=== PATIENT | male | born 1955 | race Caucasian/White ===

== ENCOUNTER 2018-07-14 07:17 | Emergency (ER) | payer OTHER ==
[2018-07-14 07:42] VITALS: BP 143/61
[2018-07-14] MEDS ORDERED: Tetracaine 0.5% OPTH.SOL 4 ML* 1 DROP BTL BOTH EYES ONE (08:19)
[2018-07-14] MEDS ORDERED: Fluorescein Sodium TOPICAL* 1 MG TEST STRIP OPHTHALMIC ONE (08:19)
--- NOTE | 2018-07-14 08:26 | UC ---
General HPI - HPI Summary HPI Summary: pt c/o a FB sensation to his L eye x 2 days. he noted while driving home, after he had been cutting cast iron pipe. + tearing and redness plus eye feels sore but no visual loss, photophobia or contact use. does wear glasses. noted some crusting upon waking but none since clearing eye with a warm wash cloth. no uri, sore throat or headache. - History of Current Complaint Chief Complaint: UCEye Stated Complaint: LEFT EYE IRRITATION Time Seen by Provider: 07/14/18 08:16 Hx Obtained From: Patient Timing: Constant Pain Intensity: 0 Associated Signs & Symptoms: Negative: Fever, Headache - Allergy/Home Medications Allergies/Adverse Reactions: Allergies Allergy/AdvReac Type Severity Reaction Status Date / Time No Known Allergies Allergy Verified 07/14/18 07:37 Home Medications: Home Medications Aspirin [Aspirin Childrens 81 MG] 81 mg PO DAILY 07/14/18 [History Confirmed 03/24] PMH/Surg Hx/FS Hx/Imm Hx Endocrine History: Dyslipidemia Cardiovascular History: Cardiac Disease, Hypertension - Surgical History Surgical History: Yes Surgery Procedure, Year, and Place: CARDIAC STENT AFTER ME PLACED IN 2013. CATARACTS BILATERAL EYES - Family History Known Family History: Positive: Non-Contributory - Social History Occupation: Employed Full-time Alcohol Use: Occasionally Substance Use Type: None Smoking Status (MU): Never Smoked Tobacco - Immunization History Most Recent Influenza Vaccination: unk Most Recent Tetanus Shot: unk Most Recent Pneumonia Vaccination: n/a Vaccination Up to Date: Yes Review of Systems All Other Systems Reviewed And Are Negative: Yes Constitutional: Positive: Negative Skin: Positive: Negative Eyes: Positive: Eye Redness - L ENT: Positive: Negative Respiratory: Positive: Negative Cardiovascular: Positive: Negative Gastrointestinal: Positive: Negative Genitourinary: Positive: Negative Motor: Positive: Negative Neurovascular: Positive: Negative Musculoskeletal: Positive: Negative Neurological: Positive: Negative Psychological: Positive: Negative Physical Exam Triage Information Reviewed: Yes Appearance: Well-Appearing Vital Signs: Initial Vital Signs Temp 97.5 F 07/14/18 07:35 Pulse 54 07/14/18 07:35 Resp 16 07/14/18 07:35 BP 143/61 07/14/18 07:35 Pulse Ox 97 07/14/18 07:35 Vital Signs Reviewed: Yes Eyes: Positive: Other: - visual acuity with glasses=ou 20/20, od 20/25, os 20/ 25. no auricular adenopathy. no periorbital edema or erythema. Globes not firm to gentle palpation but L eye "sore". conjunctiva on L injected but R is clear. Lids everted and no FB found. AC's clear. PERRL, EOMI. L eye tetracaine and FB sensation resolved. Stain L eye and no abrasions, ulcerations, FB's or dendrites. Eyes has no exudates. ENT: Positive: Pharynx normal, TMs normal. Negative: Nasal congestion, Nasal drainage Neck: Positive: Supple, Nontender, No Lymphadenopathy Respiratory: Positive: Lungs clear, Normal breath sounds Cardiovascular: Positive: RRR, No Murmur Abdomen Description: Positive: Nontender, No Organomegaly, Soft Bowel Sounds: Positive: Present Musculoskeletal: Positive: ROM Intact Neurological: Positive: Alert Psychological: Positive: Age Appropriate Behavior Skin Exam: Normal Skin: Negative: Rashes Course/Dx - Course Course Of Treatment: I CALLED THE OFFICE OF DR HARRISON. DR TONY WHOM IS COVERING WAS KIND ENOUGH TO TAKE MY CALL. WE DISCUSSED PT'S HX AND PE. SHE WILL SEE PT IN OFFICE NOW. PT AGREES TO GO DIRECTLY THERE FROM HERE. - Differential Dx - Multi-Symptom Differential Diagnoses: Other - no abrasions, ulcerations, dendrites or FB's found. possible episcleritis or iritis. doubt glaucoma. - Diagnoses Provider Diagnosis: Pain, eye, left, Injected eye, left Discharge - Sign-Out/Discharge Documenting (check all that apply): Patient Departure All imaging exams completed and their final reports reviewed: No Studies - Discharge Plan Condition: Stable Disposition: HOME Patient Education Materials: Eye Pain (ED) Referrals: Andriy Harrison MD [Medical Doctor] - Additional Instructions: LEAVE HERE AND GO DIRECTLY TO THE OFFICE OF DR HARRISON. YOU WILL BE SEEN BY DR TONY. - Billing Disposition and Condition Condition: STABLE Disposition: Home - Attestation Statements Provider Attestation: I was available for consult. This patient was seen by the PILY. The patient was not presented to, seen by, or examined by me. EK
== END 2018-07-14 09:08 | disposition home or self-care (01) ==
LOC: UCCORT 07:17
DX: H57.12 Ocular pain, left eye (principal); I10 Essential (primary) hypertension
CPT/HCPCS: 99212; A9270-GY; G0463

== ENCOUNTER 2019-07-08 05:31 | Inpatient (IN) | payer OTHER ==
[~2019-07-08 05:31] MED LIST: Buffered Lidocaine 1% SYRIN* 1 ML/SYRINGE INTRADERM ONE
[2019-07-08] MEDS ORDERED: Famotidine IV* 10 MG/ML 2 ML (20 mg) IV ONE (06:00)
[2019-07-08] MEDS ORDERED: Dexamethasone IV* 4 MG/ML 1 ML (4 MG) IV SLOW PU ONE (06:00)
[2019-07-08] MEDS ORDERED: Acetaminophen IV 1GM/100ML * 1,000 MG/100 ML VIAL IVPB ONE (06:00)
[2019-07-08] MEDS ORDERED: Gabapentin CAP(*) 300 MG PO ONE (06:00)
[2019-07-08] MEDS ORDERED: Lactated Ringers 1000 ML Bag* 1,000 ML IV SCH ×2 (06:00→11:00)
[2019-07-08] MEDS ORDERED: celeCOXIB CAP* 200 MG PO ONE (06:00)
[2019-07-08] MEDS ORDERED: Dexamethasone IV* 4 MG/ML 1 ML (4 MG) ONE (06:38)
[2019-07-08] MEDS ORDERED: Acetaminophen IV 1GM/100ML * 100 ML ONE (06:39)
[2019-07-08] MEDS ORDERED: ceFAZolin 1 GM ADVAN(*) 1 GM ADDV.VIAL IVPB ONE (06:39)
[2019-07-08] MEDS ORDERED: ceFAZolin 2 GM in NS PREMIX(*) 2 GM/100 ML BAG IVPB ONE (06:39)
[2019-07-08] MEDS ORDERED: Famotidine IV* 10 MG/ML 2 ML (20 mg) ONE (06:39)
[2019-07-08] MEDS ORDERED: celeCOXIB CAP* 200 MG ONE (06:39)
[2019-07-08] MEDS ORDERED: Buffered Lidocaine 1% SYRIN* 1 ML/SYRINGE INTRADERM ONE ×2 (06:39→07:02)
[2019-07-08] MEDS ORDERED: Gabapentin CAP(*) 300 MG ONE (06:39)
[2019-07-08] MEDS ORDERED: Bupivacaine 0.5% SDV PF* 30ML VIAL ONE (07:20)
[2019-07-08] MEDS ORDERED: Midazolam* 1 MG/ML 5 ML VIAL (5 MG) ONE ×2 (07:21→08:17)
[2019-07-08] MEDS ORDERED: Propofol* 10 MG/ML 20 ML BTL ONE (07:21)
[2019-07-08] MEDS ORDERED: KETAMINE HCL* 50 MG/ML 10 ML VIAL ONE (07:21)
[2019-07-08] MEDS ORDERED: Ondansetron INJ* 2 MG/ML VIAL ONE (07:21)
[2019-07-08] MEDS ORDERED: ROPIVACAINE 5 MG/ML 30 ML BTL (0.5%) ONE (07:27)
[2019-07-08] MEDS ORDERED: Lidocaine 1% w EPI 1:200,000* SDV 30 ML VIAL ONE (07:34)
[2019-07-08] MEDS ORDERED: Bupivacaine 0.5%* 50 ML MDV VIAL ONE (07:34)
[2019-07-08] MEDS ORDERED: Bupivacaine 0.25% W/EPI* 10 ML SDV ONE (08:45)
[2019-07-08] MEDS ORDERED: DiMENhydriNATE IV* 50 MG/ML VIAL IV PUSH PRN (08:59)
[2019-07-08] MEDS ORDERED: fentaNYL* 50 MCG/ML 2 ML VIAL (100 MCG VIAL) IV PRN (08:59)
[2019-07-08] MEDS ORDERED: Ondansetron INJ* 2 MG/ML VIAL IV PRN ×2 (08:59→10:23)
[2019-07-08] MEDS ORDERED: HYDROmorphone INJ1* 1 MG/ML SYRINGE IV PRN (08:59)
[2019-07-08] MEDS ORDERED: Scopolamine 1.5 mg* PATCH TRANSDERM PRN (08:59)
[2019-07-08] MEDS ORDERED: Naloxone* 0.4 MG/ML 1 ML VIAL IV PRN (08:59)
[2019-07-08] MEDS ORDERED: diPHENhydraMINE PO* 25 MG PO PRN (10:23)
[2019-07-08] MEDS ORDERED: oxyCODONE/Acetamin 5/325 MG* TAB PO PRN (10:23)
[2019-07-08] MEDS ORDERED: diPHENhydraMINE IV* 50 MG/ML 1 ml VIAL (BENADRYL) IV PRN (10:23)
[2019-07-08] MEDS ORDERED: Magnesium Hydroxide LIQ* 30 ML UDC PO PRN (10:23)
[2019-07-08] MEDS ORDERED: Acetaminophen TAB* 325 MG PO PRN (10:23)
[2019-07-08] MEDS ORDERED: Ondansetron ODT TAB* 4 MG PO PRN (10:23)
[2019-07-08] MEDS ORDERED: Morphine INJ* 2 MG/ML 1 ML SYRINGE (TWO MG - NEW SYRINGE VERSION) IV PRN (10:23)
[2019-07-08] MEDS: Cyclobenzaprine TAB* 10 MG PO PRN ×2 (12:03→20:52)
[2019-07-08] MEDS: oxyCODONE TAB* 5 MG TAB PO PRN ×3 (12:04→20:51)
--- NOTE | 2019-07-08 12:18 | OP ---
DATE OF OPERATION: 07/08/19 - ROOM #348 DATE OF : 53 SURGEON: Johny Beverly MD. ASSISTANTS: Pieter Jean RPA and Chinyere Kinney RPA. ANESTHESIA: Regional/spinal/sedation. PRE-OP DIAGNOSIS: Osteoarthritis, left knee. POST-OP DIAGNOSIS: Osteoarthritis, left knee. OPERATIVE PROCEDURE: Left total knee arthroplasty. ESTIMATED BLOOD LOSS: 50 cc. COMPLICATIONS: None. HARDWARE: Trabecular metal, #8 femur and F tibia, 11-mm polyethylene spacer, 35 -mm cemented all-polyethylene patellar button. INDICATIONS: Mr. Stanley is a 63-year-old male who was having troubles with osteoarthritis of both of his knees for some time. He had been treated conservatively and initially had done better, but has been having more and more limitations because of the knees. I discussed with him that a total knee arthroplasty should work well to decrease his pain and improve his function. Risks of surgery such as infection, scar formation, stiffness, DVT, pulmonary embolism, hardware failure, and continued pain were some of the risks discussed. He had been declared medically optimized and wished to proceed. DESCRIPTION OF PROCEDURE: The patient had a femoral nerve block placed in the holding area and was brought back to the OR. Spinal anesthesia was introduced. Camacho catheter was placed. A tourniquet was placed over the proximal left thigh and was used during the case and total tourniquet time would be 70 minutes. Left knee was prepped and then draped. Esmarch was used to exsanguinate the leg and the tourniquet was raised. Midline incision was made beginning just medial to the tibial tubercle and carried 2 fingerbreadths above the superior pole of the patella. Incision was carried down through the skin and subcutaneous fat. Small bleeders encountered were ligated using electro- cautery. Extensor mechanism was exposed and a sharp parapatellar arthrotomy was made. Gush of clear yellowish joint fluid was encountered. Soft tissues were sharply elevated from the medial side of the tibia and the fat pad was sharpy excised. Spurs were rongeured down from the medial side of the tibia, medial and lateral femoral condyles and lateral border of the patella. Patella measured 24 mm in thickness and a nice 10 mm cut was taken. Patella was then easily subluxated laterally and the knee was flexed up. Nice exposure of the distal femur was obtained. Step drill was used to open the femoral canal and intramedullary guide was placed. Outrigger was adjusted until it was parallel with the posterior condyles and epicondyles and then pinned into the place. Distal femoral cutting was then pinned into the place and intramedullary guide was removed. Distal femoral cut was taken and it appeared a nice cut was obtained. Femur sized nicely for an 8 and this corresponded exactly to the preoperative templating. Using the symone wing, it appeared I would not notch the anterior surface of the femur and anterior and posterior femoral cuts followed by the chamfer cuts were taken. Attention was turned to the tibia. Step drill was used to open tibial canal and intramedullary guide was placed. Outrigger was assembled and adjusted until it appeared it would take 2 mm from the worn medial side. Cutting guide was pinned into place and proximal tibial cut was taken. It appeared a nice cut was obtained. 10 spacer block was used and it could be seen that the tibial cut was perfect as the drop theodora came right along the anterior spine of the tibia. However, he was little snug on the medial side and loose on the lateral side with stressing the knee. Extra millimeter was then shaved from the medial side of the femur and this was flattened across the distal cut. Using a 12 block, he was a little snug but no longer had the wobble. A cutting block was replaced and chamfer cuts were re- cut. With the spacer block in, he appeared to have excellent stability and alignment. The tibia was sized and the F sat nicely. Holes were drilled and attention was returned to the femur. Notch cut was finished using notch cut finishing guide and stud holes were also drilled. Trial polyethylene was placed and with the 11, I like how it came out in full extension with excellent stability and flexion. Patellar tracking was perfect even without the patellar button. Patella was sized and 35 sat nicely. Central peg hole was drilled for the non-cemented but when the parts were called for, the metal backed patella was for a revision and not the Persona trabecular metal. Therefore, cement was then prepared and a 35 patella was cemented into place. Femur and tibia were both impacted into place. Once the cement had hardened, he was again trialed with the 11 and had the same wonderful motion and stability. The knee was again copiously pulse lavaged. A 10 cc of 0.25% Marcaine with epinephrine was injected behind the medial femoral condyle and then 10 cc of 0.25% Marcaine with epinephrine was injected behind the lateral condyle and the final 10 cc was injected into the lateral gutter. The knee was again copiously pulse lavaged. 11 polyethylene was then snapped into the place in the same wonderful motion and stability. Parapatellar arthrotomy was then repaired using interrupted #1 Vicryl sutures. Tourniquet was let down. No significant bleeding was encountered. The knee was again copiously pulse lavaged and all stitches held with flexion and extension of the knee. Subcutaneous tissues were reapproximated with 2-0 Vicryl and skin was closed using angel. Sterile dressing was applied. The patient was then awaken, stable on transfer to the recovery room. [id number]/[facility] #: [id number] NAZ
--- NOTE | 2019-07-08 13:03 | PN ---
Progress Note - Progress Note Date of Service: 07/08/19 Note: Pt seen POD 0, he feels well without complaints. Knee is sore, tolerable. Denies CP, SOB, dizziness, nausea. DF/PF intact, DP2+, sensation intact to light touch distally. Restart ASA 81 mg qd tomorrow morning
[2019-07-08] MEDS ORDERED: Influenza VAC *QUAD* 2019-20* 0.5 ML SYRINGE IM ONE (14:00)
[2019-07-08] MEDS: oxyCODONE/Acetamin 5/325 MG* TAB PO PRN ×2 (14:09→18:19)
[2019-07-08] MEDS: ceFAZolin 1 GM ADVAN(*) 1 GM in NS 0.9% 50 ML* 50 ML IVPB SCH (16:19)
[2019-07-08] MEDS ORDERED: Warfarin TAB(*) 10 MG PO ONE (17:00)
[2019-07-08] MEDS: Magnesium Hydroxide LIQ* 30 ML UDC PO SCH (20:51)
[2019-07-08] MEDS: Atorvastatin* 80 MG TAB PO SCH (20:51)
[2019-07-08] MEDS: Docusate CAP* 100 MG PO SCH (20:52)
[2019-07-09] MEDS: ceFAZolin 1 GM ADVAN(*) 1 GM in NS 0.9% 50 ML* 50 ML IVPB SCH ×2 (00:03→07:41)
[2019-07-09] MEDS: oxyCODONE/Acetamin 5/325 MG* TAB PO PRN ×5 (03:35→22:48)
[2019-07-09 07:26] LABS: Hematocrit 39 % (42-52); Hemoglobin 12.6 g/dL (14.0-18.0); Mean Platelet Volume 9.7 fL (7.4-10.4); Platelet Count 214 10^3/uL (150-450)
[2019-07-09 07:39] LABS: INR 1.37 (0.82-1.09)
[2019-07-09 07:41] LABS: BUN/Creatinine Ratio 13.5 (8-20); Calcium 8.5 mg/dL (8.6-10.3); EGFR Non-African American 71.9 (>60); Potassium 4.2 mmol/L (3.5-5.0)
[2019-07-09] MEDS: Magnesium Hydroxide LIQ* 30 ML UDC PO SCH ×2 (07:41→19:36)
[2019-07-09] MEDS: Docusate CAP* 100 MG PO SCH ×2 (07:41→19:36)
[2019-07-09] MEDS: Vitamin THERAPEUTIC TAB PO SCH (07:42)
[2019-07-09] MEDS: Furosemide TAB* 20 MG PO SCH (07:43)
[2019-07-09] MEDS: Aspirin 81 mg CHEW TAB* 81 MG TAB.CHEW PO SCH (07:43)
[2019-07-09] MEDS: Heparin VIAL(*) 5000 UNITS/ML VIAL (FIVE THOUSAND) SUBCUT SCH ×3 (07:44→21:58)
--- NOTE | 2019-07-09 08:42 | PN ---
Progress Note - Progress Note Date of Service: 07/09/19 SOAP: Subjective: []Pt seen at bedside POD 1 sp LTK. He has not worked with PT yet today but did transfer bed to chair last night. Knee remains sore with a tolerable level of pain, reduced by medications given. Denies CP, SOB, dizziness or nausea. Objective: []Gen: NAD, appears well LLE: Left knee dressing CDI, thigh is soft, DF/PF intact, DP2+, sensation intact to light touch distally Calves supple and nontender without erythema, edema or palpable cords Assessment: []POD 1 sp left total knee replacement Plan: []WBAT PT/OT heparin bridge to coumadin. coumadin 6 mg today Anticipate DC to home tomorrow Vital Signs Temp 97.9 F 07/09/19 07:47 Pulse 73 07/09/19 07:47 Resp 18 07/09/19 07:55 BP 150/72 07/09/19 07:47 Pulse Ox 94 07/09/19 07:52 Intake & Output 07/08/19 07/09/19 07/09/19 18:59 06:59 18:59 Intake Total 1740 739 Output Total 350 1350 Balance 1390 -611 Intake: IV Fluids 1500 689 LR 689 lr 1500 IVPB 50 cefazolin 50 Oral 240 Output: Camacho 350 1350 Laboratory Last Values Hgb 12.6 g/dL (14.0-18.0) L 07/09/19 06:35 Hct 39 % (42-52) L 07/09/19 06:35 Plt Count 214 10^3/uL (150-450) 07/09/19 06:35 MPV 9.7 fL (7.4-10.4) 07/09/19 06:35 INR (Anticoag Therapy) 1.37 (0.82-1.09) H 07/09/19 06:35 Sodium 134 mmol/L (135-145) L 07/09/19 06:35 Potassium 4.2 mmol/L (3.5-5.0) 07/09/19 06:35 Chloride 97 mmol/L (101-111) L 07/09/19 06:35 Carbon Dioxide 33 mmol/L (22-32) H 07/09/19 06:35 Anion Gap 4 mmol/L (2-11) 07/09/19 06:35 BUN 14 mg/dL (6-24) 07/09/19 06:35 Creatinine 1.04 mg/dL (0.67-1.17) 07/09/19 06:35 Est GFR ( Amer) 87.0 (>60) 07/09/19 06:35 Est GFR (Non-Af Amer) 71.9 (>60) 07/09/19 06:35 BUN/Creatinine Ratio 13.5 (8-20) 07/09/19 06:35 Glucose 106 mg/dL (70-100) H 07/09/19 06:35 Calcium 8.5 mg/dL (8.6-10.3) L 07/09/19 06:35
[2019-07-09] MEDS ORDERED: Influenza VAC *QUAD* 2019-20* 0.5 ML SYRINGE IM ONE (09:00)
[2019-07-09] MEDS: oxyCODONE TAB* 5 MG TAB PO PRN ×3 (10:36→19:36)
--- OUTSIDE RECORDS SUMMARY | 2019-07-09 16:13 | XMS REPORT | Continuity of Care Document ---
:1955 External Reference #:[id number] Author Name Johny Beverly M.D. 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 Onset: 09/30/2015 Calcium deposits in tendon ANCA Herbert Onset: 12/14/2016 Varicose veins of lower extremity Gideon Moser M.D. Onset: 03/15/2017 Atherosclerosis of arteries of the Gideon Moser M.D. Onset: 03/15/2017 extremities Thoracic and lumbosacral neuritis Gideon Moser M.D. Onset: 03/15/2017 Social History Type Date Description Comments Sex Unknown Tobacco Use Start: Unknown Never Smoked Cigarettes Smoking Status Reviewed: 06/26/19 Never Smoked Cigarettes ETOH Use Occasionally consumes alcohol Tobacco Use Start: Unknown Patient has never smoked Recreational Drug Use Denies Drug Use Exercise Type/Frequency Does not exercise Allergies, Adverse Reactions, Alerts Description No Known Drug Allergies Medications Active Medications SIG Qnty Indications Ordering Provider Date Naproxen Take 1 Tablet By 60tabs Jolly Escobar MD 03/01/2019 500mg Tablets Mouth Every 12 Hours With Food as Needed For Pain. Maximum Daily Dose Is 2 Rosuvastatin Calcium take 1 by mouth 30tabs Alvin Benito NP 10/26/2018 40mg each night Tablets Vitamin B-12 take 1 tablet by 60tabs Alvin Benito NP 01/27/2017 500mcg mouth twice a Tablet day [facility] apply before 2Pair R60.0 Alvin Benito NP 01/23/2017 Socks/Male/15-20MMHG/S getting [place] [facility] remove at bedtime Aspirin Ec Low Dose 1 by mouth every Unknown 81mg day Tablets DR Furosemide 1 by mouth every Unknown 20mg Tablets day History Medications Oxycodone HCL 1/2 to one 20caps M17.12 Johny Beverly, 05/08/2019 - 5mg tablets every 6 M.D. 05/09/2019 Capsules hours as needed for pain Meloxicam 1 -2 tablet by 30tabs M51.16 Alvin Benito NP 01/18/2019 - 7.5mg mouth once daily 06/12/2019 Tablets as needed Medications Administered in Office Medication SIG Qnty Indications Ordering Provider Date Triamcinolone (Kenalog) Jolly Escobar MD 03/05/2019 Injection Depomedrol 40MG ANCA Herbert 11/22/2017 Injection Depomedrol 40MG Johny Beverly M.D. 07/19/2017 Injection Depomedrol 40MG Johny Beverly M.D. 03/15/2017 Injection Depomedrol 40MG ANCA Herbert 12/14/2016 Injection Immunizations CPT Code Status Date Vaccine Reaction Lot # [id number] Given 04/12/2017 Zoster (Zostavax) [id number] Given 04/12/2017 Influenza Virus Vaccine, [id number] Quadrivalent, Split, Preservative Free [id number] Given 03/15/2017 Tdap - no immediate 4bn7l Tetanus/Diptheria/Acellular reaction...jh Pertussis Vital Signs Date Vital Result Comment 06/26/2019 1:01pm Height 69 inches 5'9" Weight 351.00 lb Heart Rate 62 /min BP Systolic 126 mmHg BP Diastolic 68 mmHg Body Temperature 97.4 F BMI (Body Mass Index) 51.8 kg/m2 06/13/2019 8:42am Height 69 inches 5'9" Weight 351.00 lb Heart Rate 60 /min BP Systolic 119 mmHg BP Diastolic 71 mmHg Body Temperature 97.2 F O2 % BldC Oximetry 90 % BMI (Body Mass Index) 51.8 kg/m2 Results Test Acquired Date Facility Test Result H/L Range Note CBC Auto 06/14/2019 [facility] White Blood 7.9 10^3/uL Normal 3.5-10.[address] [place] [address] [phone] Red Blood Count 5.27 10^6/uL Normal 4.18-5.48 Hemoglobin 13.7 g/dL Low 14.0-18.0 Hematocrit 43 % Normal 42-52 Mean Corpuscular Volume 81 fL Normal 80-94 Mean Corpuscular Hemoglobin 26 pg Low 27-31 Mean Corpuscular HGB Conc 32 g/dL Normal 31-36 Red Cell Distribution Width 16 % High 10-15 Platelet Count 214 10^3/uL Normal 150-450 Mean Platelet Volume 10.1 fL Normal 7.4-10.4 Abs Neutrophils 5.5 10^3/uL Normal 1.5-7.7 Abs Lymphocytes 1.5 10^3/uL Normal 1.0-4.8 Abs Monocytes 0.6 10^3/uL Normal 0-0.8 Abs Eosinophils 0.3 10^3/uL Normal 0-0.6 Abs Basophils 0.0 10^3/uL Normal 0-0.2 Abs Nucleated RBC 0.0 10^3/uL Granulocyte % 69.3 % Lymphocyte % 19.5 % Monocyte % 7.6 % Eosinophil % 3.4 % Basophil % 0.2 % Nucleated Red Blood Cells % 0.0 Basic Metabolic 06/14/2019 [facility] Sodium 142 mmol/L Normal 135-[address] [place] [address] [phone] Potassium 4.8 mmol/L Normal 3.5-5.0 Chloride 107 mmol/L Normal 101-111 Co2 Carbon Dioxide 30 mmol/L Normal 22-32 Anion Gap 5 mmol/L Normal 2-11 Glucose 96 mg/dL Normal 70-100 Blood Urea Nitrogen 19 mg/dL Normal 6-24 Creatinine 0.81 mg/dL Normal 0.67-1.17 BUN/Creatinine Ratio 23.5 High 8-20 Calcium 9.0 mg/dL Normal 8.6-10.3 Egfr Non- 95.9 >60 Egfr 116.1 >60 1 Urine Culture And 06/14/2019 [facility] Urine Culture SEE RESULT [address] [place] [address] [phone] Laboratory test 06/14/2019 [facility] Partial Thrombo 35.6 Normal 26. [address] Time PTT seconds 0-3 [place] [address] 8.0 [phone] Inr/Protime 06/14/2019 [facility] Inr 1.03 Normal 0.[address] [place] [address] .09 [phone] Laboratory test 06/14/2019 [facility] Vitamin B12 598 pg/mL Normal [address] [place] [address] 4 [phone] Lipid Profile 05/01/2019 [facility] Triglycerides 80 mg/dL 6 (Trig/Chol/HDL) [address] [place] [address] [phone] Cholesterol 145 mg/dL 7 HDL Cholesterol 35.4 mg/dL 8 LDL Cholesterol 94 mg/dL 9 Laboratory test 05/01/2019 [facility] Glucose 91 mg/dL Normal 70-[address] [place] [address] [phone] Stool Occult BLD 02/22/2019 [facility] Occult Blood Neg x3 1-3 SPCS Diag - Stool cards Comp Metabolic 01/31/2019 [facility] Sodium 141 mmol/L Normal 135-[address] [place], [place] [address] [phone] Potassium 4.0 mmol/L Normal 3.5-5.0 Chloride 105 mmol/L Normal 101-111 Co2 Carbon Dioxide 30 mmol/L Normal 22-32 Anion Gap 6 mmol/L Normal 2-11 Glucose 112 mg/dL High 70-100 Blood Urea Nitrogen 20 mg/dL Normal 6-24 Creatinine 0.78 mg/dL Normal 0.67-1.17 BUN/Creatinine Ratio 25.6 High 8-20 Calcium 9.0 mg/dL Normal 8.6-10.3 Total Protein 5.9 g/dL Low 6.4-8.9 Albumin 3.6 g/dL Normal 3.2-5.2 Globulin 2.3 g/dL Normal 2-4 Albumin/Globulin Ratio 1.6 Normal 1-3 Total Bilirubin 0.30 mg/dL Normal 0.2-1.0 Alkaline Phosphatase 68 U/L Normal 34-104 Alt 17 U/L Normal 7-52 Ast 16 U/L Normal 13-39 Egfr Non- 100.2 >60 Egfr 121.3 >60 10 Laboratory test 01/31/2019 [facility] Magnesium 2.0 mg/dL Normal 1.9-2.[address] [place] [address] [phone] Ferritin 13.8 ng/mL Low 24-336 CBC Auto 01/31/2019 [facility] White Blood 7.7 10^3/uL Normal 3.5-10.[address] [place] [address] [phone] Red Blood Count 5.34 10^6/uL Normal 4.18-5.48 Hemoglobin 13.5 g/dL Low 14.0-18.0 Hematocrit 43 % Normal 42-52 Mean Corpuscular Volume 80 fL Normal 80-94 Mean Corpuscular Hemoglobin 25 pg Low 27-31 Mean Corpuscular HGB Conc 32 g/dL Normal 31-36 Red Cell Distribution Width 16 % High 10-15 Platelet Count 217 10^3/uL Normal 150-450 Mean Platelet Volume 10.4 fL Normal 7.4-10.4 Abs Neutrophils 5.3 10^3/uL Normal 1.5-7.7 Abs Lymphocytes 1.7 10^3/uL Normal 1.0-4.8 Abs Monocytes 0.5 10^3/uL Normal 0-0.8 Abs Eosinophils 0.1 10^3/uL Normal 0-0.6 Abs Basophils 0.0 10^3/uL Normal 0-0.2 Abs Nucleated RBC 0.0 10^3/uL Granulocyte % 68.5 % Lymphocyte % 22.3 % Monocyte % 7.0 % Eosinophil % 1.7 % Basophil % 0.5 % Nucleated Red Blood Cells % 0.0 Laboratory test finding 01/30/2019 [facility] Ferritin <pending > [address] [place] [address] [phone] Magnesium <pending> 1 Because ethnic data is not always readily available, this report includes an eGFR for both -Americans and non- Americans. The National Kidney Disease Education Program (NKDEP) does not endorse the use of the MDRD equation for patients that are not between the ages of 18 and 70, are , have extremes of body size, muscle mass, or nutritional status, or are non- or non-. According to the National Kidney Foundation, irrespective of diagnosis, the stage of the disease is based on the level of kidney function: Stage Description GFR(mL/min/1.73 m(2)) 1 Kidney damage with normal or decreased GFR 90 2 Kidney damage with mild decrease in GFR 60-89 3 Moderate decrease in GFR 30-59 4 Severe decrease in GFR 15-29 5 Kidney failure <15 (or dialysis) 2 SEE RESULT BELOW Name: VICTOR MVALDEZ : [address]: Alvin Benito NP Acct: [id number] Unit: [id number] AGE: 63 Location: [facility] Re06/14/19 SEX: M Status: REG REF SPEC: [id number] HAYES: 06/14/[address]: Alvin Benito NP REQ: [id number] RECD: 06/14/19 STATUS:COMP _ SOURCE: URINE SPDESC: ORDERED: Urine Culture COMMENTS: No sooner than 30 days prior to surgery Procedure Result Reported Site Urine Culture Final 06/15/19- 1101 ML No Growth (<1,000 CFU/mL) * ML - Main Lab . END OF REPORT DEPARTMENT OF PATHOLOGY, [address] [place] [address] Roc Jimenez M.D. Director [facility] # [id number] 3 No sooner than 30 days prior to surgery 4 Standard intensity warfarin therapeutic range: 2.0-3.0 High intensity warfarin therapeutic range: 2.5-3.5 5 Normal Range 180 to 914 Indeterminate Range 145 to 180 Deficient Range <145 6 Desirable: <150 Borderline High: 150-199 High: 200-499 Very High: >500 7 Desirable: <200 Borderline High: 200-239 High: >239 8 Low: <40 Desirable: 40-60 High: >60 9 Desirable: <100 Near Optimal: 100-129 Borderline High: 130-159 High: 160-189 Very High: >189 10 Because ethnic data is not always readily available, this report includes an eGFR for both -Americans and non- Americans. The National Kidney Disease Education Program (NKDEP) does not endorse the use of the MDRD equation for patients that are not between the ages of 18 and 70, are , have extremes of body size, muscle mass, or nutritional status, or are non- or non-. According to the National Kidney Foundation, irrespective of diagnosis, the stage of the disease is based on the level of kidney function: Stage Description GFR(mL/min/1.73 m(2)) 1 Kidney damage with normal or decreased GFR 90 2 Kidney damage with mild decrease in GFR 60-89 3 Moderate decrease in GFR 30-59 4 Severe decrease in GFR 15-29 5 Kidney failure <15 (or dialysis) Procedures Date Code Description Status 03/14/2019 47954 Nerve Conduction 03-04 Studies Completed 03/14/2019 82376 Needle Electromyography Complete, Five Or More Muscles Completed Studied 03/05/2019 25892 Inject/Drain Joint/Bursa Major W/O US Completed Medical Devices Description No Information Available Encounters Type Date Location Provider Dx Diagnosis Office Visit 06/13/2019 [facility] Internal Alvin Benito NP I10 Essential ([facility] ) [facility] 05/09/2019 [facility] Alvin Benito NP Z00.00 Encntr for general 9:40[facility] w/o abnormal findings M17.12 Unilateral primary osteoarthritis, left knee M51.16 Intervertebral disc disorders w radiculopathy, lumbar region I10 Essential (primary) hypertension E78.5 Hyperlipidemia, unspecified I70.223 Athscl [place] arteries of extrm w rest pain, bilateral legs D51.9 Vitamin B12 deficiency anemia, unspecified Z12.11 Encounter for screening for malignant neoplasm of colon Office Visit 05/08/2019 Delma Mcclain M17.12 Unilateral primary 8:15a Orthopedics at [facility] osteoarthritis, left [place] knee Office Visit 03/05/2019 Delma Escobar M17.12 Unilateral primary 9:00a Orthopedics at osteoarthritis, left [place] knee Office Visit 03/01/2019 [facility] M51.36 Other intervertebral 10:30a Services Of Daljit Wall MD disc degeneration, lumbar region Office Visit 01/18/2019 [facility] Internal Alvin Benito NP M51.16 Intervertebral disc 10:40a Medicine - [facility] disorders w radiculopathy, lumbar region Assessments Date Code Description Provider 06/26/2019 M17.12 Unilateral primary osteoarthritis, left Johny Beverly M.D. knee 06/13/2019 I10 Essential (primary) hypertension Alvin Benito NP 05/09/2019 Z00.00 Encounter for general adult medical Alvin Benito NP examination without abnormal findings 05/09/2019 M17.12 Unilateral primary osteoarthritis, left Alvin Benito PROPERTY COORDINATOR knee 05/09/2019 M51.16 Intervertebral disc disorders with Alvin Benito NP radiculopathy, lumbar reg 05/09/2019 I10 Essential (primary) hypertension Alvin Benito NP 05/09/2019 E78.5 Hyperlipidemia, unspecified Alvin Benito PROPERTY COORDINATOR 05/09/2019 I70.223 Atherosclerosis of [place] arteries of Alvin Benito NP extremities with rest pain, bilateral legs 05/09/2019 D51.9 Vitamin B12 deficiency anemia, Alvin Benito PROPERTY COORDINATOR unspecified 05/09/2019 Z12.11 Encounter for screening for malignant Alvin Benito NP neoplasm of colon 05/08/2019 M17.12 Unilateral primary osteoarthritis, left Johny Beverly M.D. knee 03/14/2019 M51.16 Intervertebral disc disorders with Og Resendiz MD radiculopathy, lumbar reg 03/14/2019 G62.9 Polyneuropathy, unspecified Og Resendiz MD 03/05/2019 M17.12 Unilateral primary osteoarthritis, left Johny Beverly M.D. knee 03/05/2019 M17.12 Unilateral primary osteoarthritis, left Jolly Escobar MD knee 03/01/2019 M51.36 Other intervertebral disc degeneration, Joya Wall MD lumbar region 02/22/2019 D64.9 Anemia, unspecified Alvin Benito NP 01/18/2019 M51.16 Intervertebral disc disorders with Alvin Benito NP radiculopathy, lumbar reg Plan of Treatment Future Appointment(s):08/14/2019 1:00 pm [facility] [id number]/13/2020 1:40 pm - Alvin Benito NP at [facility] Internal Medicine - [facility]07/08/2019 7:30 am - Johny Beverly M.D. at [facility] at Bsvnuo5206/26/2019 - Johny Beverly M.D.M17.12 Unilateral primary osteoarthritis, left kneeFollow up:Follow up: first week of august Functional Status Description No Information Available Mental Status Description No Information Available Referrals Refer to Reason for Referral Status Appt Date Joya Wall MD Sent 03/01/[address] [place] [phone]
--- OUTSIDE RECORDS SUMMARY | 2019-07-09 16:13 | XMS REPORT | Continuity of Care Document ---
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 Medicine Problems Active Problems Provider Date History [...] Unknown Never Smoked Cigarettes Smoking Status Reviewed: 06/13/19 Never Smoked Cigarettes ETOH Use Occasionally consumes [...] out of ize D bed in the [facility] morning and remove at bedtime Aspirin Ec [...] Code Status Date Vaccine Reaction Lot # [id number] Given 04/12/2017 Zoster (Zostavax) [id number] Given 04/12/2017 Influenza Virus Vaccine, [id number] Quadrivalent, Split, Preservative Free 16352 Given 03/15/2017 Tdap - no immediate 4bn7l Tetanus/Diptheria/Acellular reaction...jh Pertussis Vital Signs Date Vital Result Comment 06/13/2019 8:42am Height 69 inches 5'9" Weight 351.00 lb Heart Rate 60 /min BP Systolic 119 mmHg BP Diastolic 71 mmHg Body Temperature 97.2 F O2 % BldC Oximetry 90 % BMI (Body Mass Index) 51.8 kg/m2 05/09/2019 9:44am Height 69 inches 5'9" Weight 350.38 lb Heart Rate 58 /min BP Systolic Sitting 117 mmHg BP Diastolic Sitting 69 mmHg Body Temperature 97.5 F O2 % BldC Oximetry 92 % BMI (Body Mass Index) 51.7 kg/m2 Results Test Acquired Date Facility Test Result H/L Range Note Lipid Profile 05/01/2019 [facility] Triglycerides 80 mg/dL 1 (Trig/Chol/HDL) [address] [place] [address] [phone] Cholesterol 145 mg/dL 2 HDL Cholesterol 35.4 mg/dL 3 LDL Cholesterol 94 mg/dL 4 Laboratory test 05/01/2019 [facility] Glucose 91 mg/dL Normal 70-[address] [place] [address] [phone] Stool Occult 02/22/2019 [facility] In House Occult Blood Neg x3 BLD 1-3 SPCS - Stool cards Diag CBC Auto Diff 01/31/2019 [facility] White Blood 7.7 Normal 3.5 -10.[address] Count 10^3/[place] [address] [phone] Red Blood Count 5.34 10^6/uL Normal 4.18-5.48 [...] % Nucleated Red Blood Cells % 0.0 Comp Metabolic 01/31/2019 [facility] Sodium 141 mmol/L Normal 135-145 Panel [address] [place] [address] [phone] Potassium 4.0 mmol/L Normal 3.5-5.0 Chloride 105 [...] Egfr Non- 100.2 >60 Egfr 121.3 >60 5 Laboratory test 01/31/2019 [facility] Magnesium 2.0 mg/dL Normal 1.9-2.7 finding [address] [place] [address] [phone] Ferritin 13.8 ng/mL Low 24-336 Laboratory test finding 01/30/2019 [facility] Ferritin <pending > [address] [place] [address] [phone] Magnesium <pending> 1 Desirable: <150 Borderline High: 150-199 High: 200-499 Very High: >500 2 Desirable: <200 Borderline High: 200-239 High: >239 3 Low: <40 Desirable: 40-60 High: >60 4 Desirable: <100 Near Optimal: 100-129 Borderline High: 130-159 High: 160-189 Very High: >189 5 Because ethnic data is not always readily [...] dialysis) Procedures Date Code Description Status 03/14/2019 03477 Nerve Conduction 03-04 Studies Completed 03/14/2019 16013 Needle Electromyography Complete, Five Or More Muscles Completed Studied 03/05/2019 15422 Inject/Drain Joint/Bursa Major W/O US Completed Medical Devices Description No Information Available Encounters Type Date Location Provider Dx Diagnosis Office Visit 05/09/2019 [facility] Alvin Benito NP Z00.00 [facility]/o abnormal findings M17.12 Unilateral primary osteoarthritis, left knee M51.16 Intervertebral disc disorders w radiculopathy, lumbar region I10 Essential (primary) hypertension E78.5 Hyperlipidemia, unspecified I70.223 Athscl [place] arteries of extrm w rest pain, bilateral legs D51.9 Vitamin B12 deficiency anemia, unspecified Z12.11 Encounter for screening for malignant neoplasm of colon Office Visit 05/08/2019 Delma Mcclain M17.12 Unilateral primary 8:15a Orthopedics at [facility] osteoarthritis, left [place] knee Office Visit 03/05/2019 Delma Escobar M17.12 Unilateral primary 9:00a Orthopedics at osteoarthritis, left [place] knee Office Visit 03/01/2019 [facility] M51.36 Other intervertebral 10:30a Services Of Daljit Wall MD disc degeneration, lumbar region Office Visit 01/18/2019 Daljit Benito NP M51.16 Intervertebral disc 10:40[facility] w rad[facility], lumbar region Assessments Date Code Description Provider 06/13/2019 I10 Essential (primary) hypertension Alvin Benito NP 05/09/2019 Z00.00 Encounter for general adult medical Alvin Benito NP examination without abnormal findings 05/09/2019 M17.12 Unilateral primary osteoarthritis, left Alvin Benito, RUNNING RIGGER knee 05/09/2019 M51.16 Intervertebral disc disorders with Alvin Benito RUNNING RIGGER radiculopathy, lumbar reg 05/09/2019 I10 Essential (primary) hypertension Alvin Benito NP 05/09/2019 E78.5 Hyperlipidemia, unspecified Alvin Benito, RUNNING RIGGER 05/09/2019 I70.223 Atherosclerosis of [place] arteries of Alvin Benito NP extremities with rest pain, bilateral legs 05/09/2019 D51.9 Vitamin B12 deficiency anemia, Alvin Jigna, RUNNING RIGGER unspecified 05/09/2019 Z12.11 Encounter for screening for [...] radiculopathy, lumbar reg Plan of Treatment Future Appointment(s):05/13/2020 1:40 pm - Alvin Benito NP at [facility] Internal Medicine - [facility]06/26/2019 11:00 am - Alvin Benito NP at [facility] Internal Medicine - [facility]07/08/2019 7:30 am - Johny Beverly M.D. at [facility] at [id number]/26/2019 1:00 pm - Johny Beverly M.D. at [facility] at Ypjapt9506/13/2019 - Alvin Benito NPI10 Essential (primary) hypertensionComments: Well controlled on current regimen. Continue present management. Have the bloodwork done soon. As long as that is normal I do not see any issues with your upcoming surgery. Functional Status Description No Information Available Mental Status Description No Information Available Referrals Refer to Reason for Referral Status Appt Date Joya Wall MD Sent 03/01/[address] [place] [phone]
--- OUTSIDE RECORDS SUMMARY | 2019-07-09 16:13 | XMS REPORT | Continuity of Care Document ---
:1955 External Reference #:[id number] Author Name Malik Quick PA (transmitted by agent of provider Jennifer Lim) Address [address], [address] [place] [address] Care Team Providers Name Role Phone Alvin Benito FNP - Family Care Team Information Dean Of Men Problems Active Problems Provider Date Disease Onset: Coronary arteriosclerosis Joseph Gamino MD Onset: 09/03/2014 Mixed hyperlipidemia Malik Quick PA Onset: 05/11/2017 Social History Type Date Description Comments Sex Unknown Tobacco Use Start: Unknown Never Smoked Cigarettes Smoking Status Reviewed: 05/15/18 Never Smoked Cigarettes ETOH Use Drinks Alcoholic Beverages Occasionally Allergies, Adverse Reactions, Alerts Description No Known Drug Allergies Medications Active Medications SIG Qnty Indications Ordering Provider Date Lasix 1 by mouth every 30tabs Farhan Landrum 09/19/2017 20mg Tablets day Adonay Burgos, [facility] Crestor 1 tab by mouth 90tabs Farhan Landrum 05/12/2017 40mg Tablets daily at bedtime Adonay Burgos, [facility] Aspirin Ec 1 by mouth every 90tabs Joseph Gamino MD 11/01/[address] Shena gottlieb 1 tablet 25tabs Farhan Landrum 05/27/2014 0.4mg Tablets (0.4 mg total) Adonay Burgos, [facility] Sub under the tongue every 5 (five) minutes as needed for chest pain Vitamin B-12 1 by mouth every Unknown 500mcg day Tablets Sub Naproxen take one tablet Unknown 500mg Tablets by mouth twice a day Immunizations Description No Information Available Vital Signs Date Vital Result Comment 06/14/2019 8:11am BP Systolic Sitting Left Arm 120 mmHg BP Diastolic Sitting Left Arm 78 mmHg Heart Rate 59 /min Respiratory Rate 20 /min Height 70 inches 5'10" Weight 352.00 lb BMI (Body Mass Index) 50.5 kg/m2 BSA (Body Surface Area) 2.65 m2 [place] body weight in kilograms 75 kg O2 Saturation Level with Exercise 94 % 05/15/2018 9:09am BP Systolic Sitting Left Arm 118 mmHg BP Diastolic Sitting Left Arm 72 mmHg Heart Rate 62 /min Respiratory Rate 18 /min Height 70 inches 5'10" Weight 333.00 lb BMI (Body Mass Index) 47.8 kg/m2 BSA (Body Surface Area) 2.59 m2 [place] body weight in kilograms 75 kg O2 % BldC Oximetry 94 % Results Description No Information Available Procedures Date Code Description Status 06/14/2019 73876 EKG-Tracing And Report Completed Medical Devices Description No Information Available Encounters Type Date Location Provider Dx Diagnosis Office Visit 06/14/2019 Cardiology Office Malik Quick Z01.810 Encounter for 8:20a ANCA Melvin preprocedural cardiovascular examination I25.10 Aths[place] heart disease of [place] coronary artery w/o ang pctrs E78.2 Mixed hyperlipidemia I10 Essential (primary) hypertension Assessments Date Code Description Provider 06/14/2019 Z01.810 Encounter for preprocedural cardiovascular Malik Quick PA examination 06/14/2019 I25.10 Atherosclerotic heart disease of [place] Malik Quick PA coronary artery without angina pectoris 06/14/2019 E78.2 Mixed hyperlipidemia Malik Quick PA 06/14/2019 I10 Essential (primary) hypertension Malik Quick PA Plan of Treatment Future Appointment(s):06/17/2020 9:00 am - Joseph Gamino MD at Cardiology Axdtxt8406/14/2019 - Malik Quick, PAZ01.810 Encounter for preprocedural cardiovascular examinationComments:As above.I25.10 Atherosclerotic heart disease of [place] coronary artery without angina pectorisComments:Continue with medical management. No changes.E78.2 Mixed hyperlipidemiaComments:Will get a copy of the most recent lipids. Will need to have total cholesterol <200 and LDL <70.I10 Essential (primary) hypertensionComments:Monitor. No changes.AllFollow up:1 year - sooner if needed Functional Status Functional Condition Comment Date Status Glasses Active Independent with all ADL's Active Mental Status Description No Information Available Referrals Description No Information Available
--- OUTSIDE RECORDS SUMMARY | 2019-07-09 16:13 | XMS REPORT | Continuity of Care Document ---
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 [phone] Problems Active Problems Provider Date Disease Onset: [...] Landrum 09/19/2017 20mg Tablets day Adonay Burgos, [facility] Crestor 1 tab by mouth 90tabs Farhan Landrum 05/12/2017 40mg Tablets daily at bedtime Adonay Burgos, [facility] Aspirin Ec 1 by mouth every 90tabs Joseph Gamino MD 11/01/[address] Shena gottlieb 1 tablet 25tabs Farhan Landrum 05/27/2014 0.4mg Tablets (0.4 mg total) [facility], [facility] Sub under the tongue every 5 (five) [...] kg/m2 BSA (Body Surface Area) 2.65 m2 [place] body weight in kilograms 75 kg O2 Saturation Level with Exercise 94 % 05/15/2018 9:09am BP Systolic Sitting Left Arm 118 mmHg BP Diastolic Sitting Left Arm 72 mmHg Heart Rate 62 /min Respiratory Rate 18 /min Height 70 inches 5'10" Weight 333.00 lb BMI (Body Mass Index) 47.8 kg/m2 BSA (Body Surface Area) 2.59 m2 [place] body weight in kilograms 75 kg O2 % BldC Oximetry 94 % Results Description No Information Available Procedures Date Code Description Status 06/14/2019 37535 EKG-Tracing And Report Completed Medical Devices Description No Information Available Encounters Type Date Location Provider Dx Diagnosis Office Visit 06/14/2019 Cardiology Office Malik Quick Z01.810 Encounter for 8:20a ANCA Melvin preprocedural cardiovascular examination I25.10 [place]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 E78.2 Mixed hyperlipidemia I10 Essential (primary) hypertension Assessments Date Code Description Provider 06/14/2019 Z01.810 Encounter for preprocedural cardiovascular Malik Quick PA examination 06/14/2019 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
[2019-07-09] MEDS ORDERED: Warfarin TAB(*) 6 MG PO SCH (17:00)
[2019-07-09] MEDS: Atorvastatin* 80 MG TAB PO SCH (19:36)
[2019-07-10] MEDS: oxyCODONE TAB* 5 MG TAB PO PRN ×2 (03:08→08:57)
[2019-07-10] MEDS: Heparin VIAL(*) 5000 UNITS/ML VIAL (FIVE THOUSAND) SUBCUT SCH (05:40)
[2019-07-10 05:41] LABS: Hematocrit 38 % (42-52); Hemoglobin 12.7 g/dL (14.0-18.0); Mean Platelet Volume 9.5 fL (7.4-10.4); Platelet Count 192 10^3/uL (150-450)
[2019-07-10 05:45] LABS: INR 1.64 (0.82-1.09)
[2019-07-10 05:58] LABS: BUN/Creatinine Ratio 17.5 (8-20); Calcium 8.5 mg/dL (8.6-10.3); EGFR African American 117.8 (>60); EGFR Non-African American 97.3 (>60); Potassium 4.3 mmol/L (3.5-5.0)
[2019-07-10 08:28] VITALS: BP 162/76
--- NOTE | 2019-07-10 08:43 | PN ---
Progress Note - Progress Note Date of Service: 07/10/19 SOAP: Subjective: Pt is doing well. Pain controlled. Doing well with PT. Denies Cp/SOB F/C or calf pain. Objective: []Gen: NAD, appears well LLE: Left knee dressing CDI, thigh is soft, DF/PF intact, DP2+, sensation intact to light touch distally Calves supple and nontender without erythema, edema or palpable cords Assessment: []POD 2 sp left total knee replacement Plan: []WBAT PT/OT lovenox bridge to coumadin. coumadin 6 mg tonight oxycodone for pain colace for constipation DC to home today. Check NA outpatient F/U with Dr. Beverly in 4 weeks Vital Signs Temp Pulse Resp BP Pulse Ox 98.1 F 80 18 162/76 96 07/10/19 08:26 07/10/19 08:26 07/10/19 08:26 07/10/19 08:26 07/10/19 08:26 Laboratory Results - last 24 hr 07/10/19 07/10/19 07/10/19 05:24 05:24 05:24 Hgb 12.7 L Hct 38 L Plt Count 192 MPV 9.5 INR (Anticoag Therapy) 1.64 H Sodium 131 L Potassium 4.3 Chloride 99 L Carbon Dioxide 28 Anion Gap 4 BUN 14 Creatinine 0.80 Est GFR ( Amer) 117.8 Est GFR (Non-Af Amer) 97.3 BUN/Creatinine Ratio 17.5 Glucose 111 H Calcium 8.5 L
--- NOTE | 2019-07-10 08:46 | DS ---
Orthopedic Discharge Summary - Discharge Summary Date of Admission:07/08/19 Date of Discharge: [07/10/19] Date of Surgery: [07/08/19] Attending Orthopedic Provider: [Dr. Beverly] Pre-operative Diagnosis: [Left knee OA] Operative Procedure: [Left total knee replacement] Disposition of Patient: [Home with VNS] Condition of Patient: [Stable] History: MARC DOW is a 63 year old M with years of increasingly severe [ left knee] pain. Patient has failed conservative management and has elected to undergo a [left] total [knee] replacement Hospital Course: MARC was admitted to [facility] on 07/08/19. Patient underwent a [left total knee replacement] without complication followed by a brief recovery in PACU and transfer to the Short Stay Surgical Unit in stable condition. Our hospitalist service, physical therapy and occupational therapy also participated in this patients care. Post-op day 1: patient was alert and in no acute distress. Dressing was clean, dry and intact. Operative extremity dorsiflexion and plantarflexion intact, sensation intact to light touch distally, DP2+. Post-op day two: dressing was changed, incision was clean , dry and intact. Patient was deemed to be medically and orthopedically stable for discharge to home with VNS. Physical therapy goals were met. Home Medications Medication Instructions Recorded Confirmed Type Furosemide [Lasix] 20 mg PO QAM MDD 20 03/11/16 07/08/19 History Aspirin [Aspirin Childrens 81 MG] 81 mg PO QAM 07/14/18 07/08/19 History Cyanocobalamin TAB* [Vitamin B12 500 mcg PO BID 06/26/19 07/08/19 History TAB*] Rosuvastatin Calcium 1 tab PO BEDTIME 06/26/19 07/08/19 History Acetaminophen TAB* [Tylenol TAB*] 650 mg PO Q8HR PRN tab 07/09/19 Rx Aspirin 81 mg CHEW TAB* 81 mg PO DAILY tab.chew 07/09/19 Rx Docusate CAP* [Colace Cap*] 100 mg PO BID PRN #90 cap 07/09/19 Rx Warfarin TAB(*) [Coumadin TAB(*)] 2 mg PO DAILY #90 tab 07/09/19 Rx oxyCODONE TAB* [Roxycodone TAB 5 10 mg PO Q4H PRN #70 tab MDD 10 07/09/19 Rx mg*] Lovenox 40 mg 0.4ml 1 inj subcut daily until instructed to stop by ortho office Discharge Instructions following Orthopedic Surgery: Activity: * Weight Bearing as tolerated * Continue physical therapy and occupational therapy exercises as shown * Home PT Wound care: * OK to shower on post-op day 3, no bathing, swimming, or submerging wound. * Use gentle soap, pat dry. Cover with gauze, ELTON wrap or tape. * Visiting home nurse to do wound checks. Call Orthopedic office for: * Increased drainage * Redness * Increased pain * Fever Go to ER with shortness of breath or chest pain. Diet: * Regular diet * Increase fluids and fiber to prevent constipation. * Continue to use stool softeners, call office if no bowel motion within 48 hours. * Colace 100 mg take 1 tab three times a day as needed for constipation Medications See Home Medication List in your packet for medications that you should take after discharge. DVT Prophylaxis: Coumadin Dosing: Medication increases bleeding tendency * Please note that you have been given 2 mg tablets. * Visiting home nurse to draw blood work for INR on Monday and . * You will be provided with dose instructions on Mondays and . * If you do not receive dosing instruction on dosing, please call our office right away. Please luma dosing instructions on your calendar as they are provided to you. * Dosin mg (3 tablets) 07/10 at 17:00 INR blood draw for further dosing instructions on Mondays and . Call orthopedic office if you do not receive dosing instructions. Lovenox 40 mg/0.4 ml 1 inj subcutaneous daily until instructed to stop by ortho office Pain Control: Oxycodone 5 mg tabs take 1 tab for moderate and 2 tabs for severe pain by mouth every 4 hours as needed for pain. Maximum of 10 tabs per day. Hold for sedation and wean off as soon as pain allows. Antibiotics are required prior to any dental work. VNS to check sodium levels on Monday07/15/19 FOLLOW UP: Follow up with [Rush] Within 4 weeks post op, call for appointment Please call our office with any questions or concerns ([phone]) RX to [facility]
[2019-07-10] MEDS: Docusate CAP* 100 MG PO SCH (08:57)
[2019-07-10] MEDS: Vitamin THERAPEUTIC TAB PO SCH (08:57)
[2019-07-10] MEDS: Aspirin 81 mg CHEW TAB* 81 MG TAB.CHEW PO SCH (08:57)
[2019-07-10] MEDS: Furosemide TAB* 20 MG PO SCH (08:57)
[2019-07-10] MEDS: Magnesium Hydroxide LIQ* 30 ML UDC PO SCH (08:58)
== END 2019-07-10 11:30 | disposition home health service (06) | DRG 302 ==
LOC: AA 05:31 → SSU 10:23
PROVIDERS: ADMIT Orthopaedic Surgery; ATTEND Orthopaedic Surgery
PROC: 0SRD0J9 Replacement of Left Knee Joint with Synthetic Substitute, Cemented, Open Approach (ICD-10-PCS; principal; 2019-07-08 07:30)
DX: M17.12 Unilateral primary osteoarthritis, left knee (principal); I25.10 Atherosclerotic heart disease of native coronary artery without angina pectoris; Z95.5 Presence of coronary angioplasty implant and graft; R60.0 Localized edema; N40.0 Benign prostatic hyperplasia without lower urinary tract symptoms; M54.14 Radiculopathy, thoracic region; M54.16 Radiculopathy, lumbar region; I83.90 Asymptomatic varicose veins of unspecified lower extremity; Z82.49 Family history of ischemic heart disease and other diseases of the circulatory system; Z80.6 Family history of leukemia; Z79.82 Long term (current) use of aspirin; Z79.899 Other long term (current) drug therapy
CPT/HCPCS: 36415; 80048; 85014; 85018; 85049; 85610; 88305; 88311; 90686; A9270-GY; C1776; J0690; J1100; J1644; J2001; J2250; J2270; J2405; J2704; J2795; J3490

== ENCOUNTER 2019-09-23 05:26 | Day surgery (SDC) | payer OTHER ==
[2019-09-23] MEDS ORDERED: Lactated Ringers 1000 ML Bag* 1,000 ML IV SCH (06:00)
[2019-09-23] MEDS ORDERED: ceFAZolin 1 GM ADVAN(*) 1 GM ADDV.VIAL IVPB ONE (06:16)
[2019-09-23] MEDS ORDERED: Buffered Lidocaine 1% SYRIN* 1 ML/SYRINGE INTRADERM ONE (06:16)
[2019-09-23] MEDS ORDERED: ceFAZolin 2 GM in NS PREMIX(*) 2 GM/100 ML BAG IVPB ONE (06:16)
[2019-09-23] MEDS ORDERED: Bupivacaine 0.5% W/EPI SDV* 10 ML VIAL INJ ONE (07:39)
[2019-09-23] MEDS ORDERED: Naloxone* 0.4 MG/ML 1 ML VIAL IV PRN (07:42)
[2019-09-23 08:09] VITALS: BP 122/60
--- NOTE | 2019-09-23 13:32 | OP ---
DATE OF OPERATION: 09/23/19 - [facility] DATE OF : 53 SURGEON: Johny Beverly MD PRE-OP DIAGNOSES: 1. Contracture/arthrofibrosis, left knee. 2. Status post left total knee arthroplasty. POST-OP DIAGNOSES: 1. Contracture/arthrofibrosis, left knee. 2. Status post left total knee arthroplasty. OPERATIVE PROCEDURE: Left knee manipulation under anesthesia. ESTIMATED BLOOD LOSS: None. COMPLICATIONS: None. INDICATIONS: In summary, Mr. Stanley is a 63-year-old male who had undergone a left total knee arthroplasty back on 07/08/19. His insurance company now denied physical therapy, so he has been trying to work the knee on his own. He has been able to do alright where he is walking and doing better but was unable to flex the knee past 90 degrees. I discussed with him that a manipulation is necessary, so that he could start flexing the knee further and have better motion and better function. Risks of surgery such as fracture, continued stiffness, limited motion and pain were some of the risks discussed and he had wished to proceed. DESCRIPTION OF PROCEDURE: The patient was brought to the OR and sedation was given. Knee was then gently manipulated where he could not get past approximately 75 degrees and with leaning into him, I was able to get him to 120 degrees. Similarly, leaning into him for extension, I could feel that crunch and get him locked out into a full extension. Knee was then injected with 30 cc of 0.5% Marcaine with epinephrine. He tolerated the procedure well and was stable on transfer to the recovery room. DISPOSITION/DISCHARGE SUMMARY: Mr. Stanley is a 63-year-old male who just underwent a left knee manipulation. He tolerated the procedure well, no complications. He is here in the recovery room. Once he can tolerate p.o., has his pain well controlled and he can void, he will be discharged home. Script for Secretary will be e-scribed in. He has instructions to replace the Band- Aid if needed. He should continue to work the knee for range of motion exercises as he still has not been approved for physical therapy by his insurance company. If there are any problems, the instruction is to give the office a call. Otherwise, I would like to see him in the office in approximately 2 weeks to make sure he is moving better and that no troubles have come up. [id number]/CPS #: [id number]
== END 2019-09-23 08:10 | disposition home or self-care (01) ==
LOC: OR 05:26
PROVIDERS: ATTEND Orthopaedic Surgery
DX: T84.82XA Fibrosis due to internal orthopedic prosthetic devices, implants and grafts, initial encounter (principal); Y83.1 Surgical operation with implant of artificial internal device as the cause of abnormal reaction of the patient, or of later complication, without mention of misadventure at the time of the procedure; Z47.1 Aftercare following joint replacement surgery; Z96.652 Presence of left artificial knee joint; Z79.01 Long term (current) use of anticoagulants; I25.10 Atherosclerotic heart disease of native coronary artery without angina pectoris; M19.90 Unspecified osteoarthritis, unspecified site; E66.9 Obesity, unspecified; N18.9 Chronic kidney disease, unspecified; I12.9 Hypertensive chronic kidney disease with stage 1 through stage 4 chronic kidney disease, or unspecified chronic kidney disease
CPT/HCPCS: J0690

== ENCOUNTER 2021-02-10 09:34 | Inpatient (IN) ==
[2021-02-10] MEDS ORDERED: Lactated Ringers 1000 ml BAG 1,000 ML IV ONE (10:28)
[2021-02-10 10:55] LABS: ABS Eosinophils 0.1 10^3/ul (0-0.6); ABS Lymphocytes 1.1 10^3/ul (1.0-4.8); ABS Neutrophils 9.4 10^3/ul (1.5-7.7); Eosinophil % 0.7 %; Hematocrit 39 % (42-52); Hemoglobin 12.2 g/dL (14.0-18.0); Lymphocyte % 9.6 %; Mean Corpuscular HGB Conc 31 g/dL (31-36); Mean Corpuscular Hemoglobin 24 pg (27-31); Mean Corpuscular Volume 76 fL (80-94); Mean Platelet Volume 9.1 fL (7.4-10.4); Platelet Count 272 10^3/uL (150-450); Red Blood Count 5.13 10^6 /uL (4.18-5.48); Red Cell Distribution Width 17 % (10-15); White Blood Count 11.6 10^3/uL (3.5-10.8)
[2021-02-10 11:11] LABS: Albumin 3.6 g/dL (3.2-5.2); Albumin/Globulin Ratio 1.1 (1-3); C Reactive Protein 158.21 mg/L (<8.01); Calcium 9.3 mg/dL (8.6-10.3); EGFR African American 112.2 (>60); EGFR Non-African American 92.7 (>60); Globulin 3.4 g/dL (2-4); Magnesium 1.7 mg/dL (1.9-2.7); Potassium 4.2 mmol/L (3.5-5.0); Total Bilirubin 0.5 mg/dL (0.2-1.0)
[2021-02-10] MEDS ORDERED: Magnesium Sulfate 2 gm BAG 2 GM/50 ML BAG IVPB ONE (11:41)
[2021-02-10] MEDS ORDERED: Iohexol 300 (CONTRAST) 10 ML SDV IV ONE (12:42)
[2021-02-10] MEDS ORDERED: Piperacillin/Tazobac ADVAN 3.375 GM in NS 0.9% 100 ml BAG 100 ML IV ONE ×2 (13:48→16:56)
[2021-02-10] MEDS ORDERED: Ondansetron 4 mg VIAL 2 MG/ML 2 ml VIAL IV PRN (16:29)
[2021-02-10] MEDS ORDERED: Morphine 2 MG/ML SYRINGE IV PRN (16:45)
[2021-02-10] MEDS ORDERED: Zosyn per Pharmacy NOTE FOLLOW UP SCH ×2 (17:00)
[2021-02-10] MEDS ORDERED: Lactated Ringers 1000 ml BAG 1,000 ML IV SCH (17:00)
[2021-02-10 17:07] LABS: Urine Appearance Clear; Urine Bilirubin Negative (Negative); Urine Blood Negative (Negative); Urine Color Amber; Urine Glucose Negative (Negative); Urine Ketones Negative (Negative); Urine Nitrite Negative (Negative); Urine Protein 2+(100 mg/dL) (Negative); Urine Specific Gravity 1.027 (1.002-1.030); Urine Urobilinogen Positive (Negative)
[2021-02-10 17:09] LABS: Urine Bacteria Absent (Absent); Urine Red Blood Cell Trace(0-2/hpf) (Absent); Urine White Blood Cell Trace(0-5/hpf) (Absent)
[2021-02-10] MEDS: ZOSYN 3.375 GM Q8H per EXTENDED INFUSION IV SCH (18:06)
[2021-02-10] MEDS: NS 0.9% 1000 ml BAG 1,000 ML IV SCH (19:13)
[2021-02-11] MEDS: ZOSYN 3.375 GM Q8H per EXTENDED INFUSION IV SCH ×3 (02:54→18:40)
[2021-02-11 05:51] LABS: ABS Eosinophils 0.2 10^3/ul (0-0.6); ABS Lymphocytes 0.9 10^3/ul (1.0-4.8); ABS Monocytes 0.8 10^3/ul (0-0.8); ABS Neutrophils 7.8 10^3/ul (1.5-7.7); Eosinophil % 1.6 %; Hematocrit 35 % (42-52); Hemoglobin 11.1 g/dL (14.0-18.0); Lymphocyte % 9.6 %; Mean Corpuscular HGB Conc 32 g/dL (31-36); Mean Corpuscular Hemoglobin 24 pg (27-31); Mean Corpuscular Volume 76 fL (80-94); Mean Platelet Volume 9.3 fL (7.4-10.4); Platelet Count 249 10^3/uL (150-450); Red Blood Count 4.58 10^6 /uL (4.18-5.48); Red Cell Distribution Width 17 % (10-15); White Blood Count 9.8 10^3/uL (3.5-10.8)
[2021-02-11 06:21] LABS: Calcium 8.6 mg/dL (8.6-10.3); EGFR African American 109.1 (>60); EGFR Non-African American 90.2 (>60)
[2021-02-11] MEDS ORDERED: Pneumococcal Vac 23-Polyvalent IM ONE (09:00)
[2021-02-11] MEDS: NS 0.9% 1000 ml BAG 1,000 ML IV SCH (10:08)
[2021-02-12] MEDS: ZOSYN 3.375 GM Q8H per EXTENDED INFUSION IV SCH ×2 (02:30→11:27)
[2021-02-12 05:42] LABS: Hematocrit 36 % (42-52); Hemoglobin 11.4 g/dL (14.0-18.0); Mean Corpuscular HGB Conc 31 g/dL (31-36); Mean Corpuscular Hemoglobin 24 pg (27-31); Mean Corpuscular Volume 76 fL (80-94); Mean Platelet Volume 8.9 fL (7.4-10.4); Platelet Count 260 10^3/uL (150-450); Red Blood Count 4.73 10^6 /uL (4.18-5.48); Red Cell Distribution Width 16 % (10-15)
[2021-02-12 06:03] LABS: Calcium 8.7 mg/dL (8.6-10.3); EGFR African American 110.6 (>60); EGFR Non-African American 91.4 (>60); Potassium 4.1 mmol/L (3.5-5.0)
[2021-02-12 11:38] VITALS: BP 132/74
== END 2021-02-12 14:45 | disposition home or self-care (01) | DRG 392 ==
LOC: ED 09:34 → SSU 17:06 → MED 02-12 04:59
PROVIDERS: ADMIT Internal Medicine; ATTEND Internal Medicine

== ENCOUNTER 2023-08-18 17:50 | Inpatient (IN) ==
[2023-08-18 21:17] LABS: ABS Basophils 0.1 10^3/uL (0.0-0.1); ABS Eosinophils 0.1 10^3/uL (0.0-0.5); ABS Lymphocytes 1.2 10^3/uL (1.0-4.8); ABS Monocytes 0.5 10^3/uL (0.0-1.1); ABS Neutrophils 9.3 10^3/uL (1.5-7.6); ABS Nucleated RBC 0.03 10^3/ul; Eosinophil % 0.6 %; Hematocrit 29.4 % (38-53); Mean Corpuscular Hgb Conc 27.2 g/dL (31-36); Mean Corpuscular Volume 66.3 fL (80-97); Mean Platelet Volume 8.7 fL (7.5-11.2); Nucleated Red Blood Cells % 0.2 %/100WBC (0.0-0.8); Platelet Count 462 10^3/uL (150-450); Red Blood Count 4.43 10^6/uL (4.06-5.63); White Blood Count 11.2 10^3/uL (3.6-10.2)
[2023-08-18 21:31] LABS: Albumin 3.3 g/dL (3.2-5.2); Albumin/Globulin Ratio 1.1 (1-3); C Reactive Protein 31.68 mg/L (<8.01); Calcium 8.2 mg/dL (8.6-10.3); Creatinine, Serum 1.17 mg/dL (0.67-1.17); Globulin 3.1 g/dL (2-4); Magnesium 1.9 mg/dL (1.9-2.7); Potassium 3.8 mmol/L (3.5-5.0); Total Bilirubin 0.3 mg/dL (0.2-1.0); Total Protein 6.4 g/dL (6.4-8.9); eGFR CKD-EPI 67.9 (>60)
[2023-08-18 22:41] LABS: High Sensitivity Troponin 1 Hr 23 pg/mL (<20)
[2023-08-18] MEDS: Iohexol 350 (CONTRAST) 500 ML MDV IV ONE (23:03)
[2023-08-18] MEDS: Furosemide 40 mg/4 ml IV VIAL IV SLOW PU ONE (23:15)
[2023-08-19 00:06] LABS: Erythrocyte Sed Rate 35 mm/Hr (0-19)
[2023-08-19] MEDS: cefTRIAXone 1 gm/50 mL D5W 1 GM/50 ML BAG IV ONE (00:40)
[2023-08-19] MEDS: Azithromycin 500 mg/250 ml NS 500 MG/250 ML BAG IVPB ONE (01:04)
[2023-08-19 07:56] LABS: ABS Basophils 0.1 10^3/uL (0.0-0.1); ABS Eosinophils 0.1 10^3/uL (0.0-0.5); ABS Lymphocytes 1.1 10^3/uL (1.0-4.8); ABS Monocytes 0.7 10^3/uL (0.0-1.1); ABS Nucleated RBC 0.01 10^3/ul; Eosinophil % 1.8 %; Hematocrit 28.3 % (38-53); Lymphocyte % 13.5 %; Mean Corpuscular Hemoglobin 18.6 pg (27-33); Mean Corpuscular Hgb Conc 28.2 g/dL (31-36); Mean Corpuscular Volume 65.9 fL (80-97); Mean Platelet Volume 8.6 fL (7.5-11.2); Nucleated Red Blood Cells % 0.1 %/100WBC (0.0-0.8); Platelet Count 411 10^3/uL (150-450); Red Cell Distribution Width 20.7 % (12-17); White Blood Count 8.1 10^3/uL (3.6-10.2)
[2023-08-19 08:09] LABS: Calcium 8.1 mg/dL (8.6-10.3); Creatinine, Serum 1.13 mg/dL (0.67-1.17); Potassium 3.4 mmol/L (3.5-5.0); eGFR CKD-EPI 70.8 (>60)
[2023-08-19] MEDS: KCL 20 MEQ/100 ML IVPREMIX 20 MEQ/100 ML BAG IV ONE (09:11)
[2023-08-19] MEDS: Potassium Chlor 20 meq TAB.ER PO SCH (10:06)
[2023-08-19] MEDS ORDERED: Benzocaine/Menthol LOZ MT PRN (10:28)
[2023-08-19] MEDS: EDOXABAN 60 MG PO SCH (10:56)
[2023-08-19] MEDS: Iron Sucrose 200 MG in NS 0.9% 100 ml BAG 100 ML IVPB ONE (11:20)
[2023-08-20] MEDS: cefTRIAXone 1 gm/50 mL D5W 1 GM/50 ML BAG IV SCH (00:27)
[2023-08-20 06:55] LABS: ABS Basophils 0.1 10^3/uL (0.0-0.1); ABS Eosinophils 0.2 10^3/uL (0.0-0.5); ABS Lymphocytes 1.1 10^3/uL (1.0-4.8); ABS Monocytes 0.5 10^3/uL (0.0-1.1); ABS Neutrophils 5.5 10^3/uL (1.5-7.6); Eosinophil % 2.6 %; Hematocrit 28.7 % (38-53); Hemoglobin 8.1 g/dL (13.2-16.3); Lymphocyte % 14.8 %; Mean Corpuscular Hemoglobin 18.5 pg (27-33); Mean Corpuscular Hgb Conc 28.1 g/dL (31-36); Mean Corpuscular Volume 65.8 fL (80-97); Mean Platelet Volume 8.5 fL (7.5-11.2); Nucleated Red Blood Cells % 0.2 %/100WBC (0.0-0.8); Platelet Count 440 10^3/uL (150-450); Red Blood Count 4.37 10^6/uL (4.06-5.63); White Blood Count 7.3 10^3/uL (3.6-10.2)
[2023-08-20 07:18] LABS: Albumin 3.3 g/dL (3.2-5.2); Albumin/Globulin Ratio 1.1 (1-3); Calcium 9.1 mg/dL (8.6-10.3); Creatinine, Serum 1.04 mg/dL (0.67-1.17); Globulin 2.9 g/dL (2-4); Potassium 3.9 mmol/L (3.5-5.0); Total Bilirubin 0.3 mg/dL (0.2-1.0); Total Protein 6.2 g/dL (6.4-8.9); eGFR CKD-EPI 78.2 (>60)
[2023-08-20] MEDS ORDERED: Iron Sucrose 20 MG/ML 5 ML VIAL IV PUSH ONE (08:42)
[2023-08-20 09:33] LABS: ABS Nucleated RBC 0.02 10^3/ul
[2023-08-20 09:50] LABS: PCO2 Arterial 62 mmHg (35-45); PO2 Arterial 78 mmHg (80-100)
[2023-08-20] MEDS: Iron Sucrose 200 MG in NS 0.9% 100 ml IVPB ONE (13:39)
[2023-08-21 14:15] VITALS: BP 126/65
== END 2023-08-21 17:18 | disposition home or self-care (01) | DRG 193 ==
LOC: ED 17:50 → SUATTDRO 08-19 00:53 → EDHOLD 08-19 00:53 → MEDTELE 08-19 04:52
PROVIDERS: ADMIT Student in an Organized Health Care Education/Training Program; ATTEND Internal Medicine